=== PATIENT | female | born 1985 | race Caucasian/White ===

== ENCOUNTER 2017-06-15 13:07 | Emergency (ER) | payer SELFPAY ==
[~2017-06-15] VITALS: Ht 160 cm; Wt 59.0 kg
[2017-06-15 17:24] VITALS: BP 105/61
[2017-06-15 19:29] VITALS: BP 96/65
--- NOTE | 2017-06-15 20:17 | Emergency Room Report ---
History of Present Illness General Chief Complaint: Pain Source: Patient, EMS Present Illness HPI The patient is a 32-year-old female brought in by ambulance from the street complaining of foot pain. She states that she has been walking more than usual without shoes. Pain is an 8/10 dull ache and does not radiate. Worse with movement and touch. She denies injury to the area. She denies any other symptoms Allergies: Coded Allergies: No Known Allergies (Unverified , 06/15/17) Patient History Past Medical History: see triage record Pertinent Family History: none Reviewed Nursing Documentation: PMH: Agreed, PSxH: Agreed Nursing Documentation-PM Past Medical History: No History, Except For Hx Cancer: Yes Hx Seizures: Yes Review of Systems All Other Systems: negative except mentioned in HPI Physical Exam Vital Signs Date Time Temp Pulse Resp B/P (MAP) Pulse Ox O2 Delivery O2 Flow Rate FiO2 06/15/17 13:03 97.9 90 20 118/72 100 Room Air Sp02 EP Interpretation: reviewed, normal General Appearance: no apparent distress, alert, GCS 15, non-toxic Head: normocephalic, atraumatic Eyes: bilateral eye normal inspection, bilateral eye PERRL ENT: hearing grossly normal, normal pharynx, no angioedema, normal voice Musculoskeletal: normal inspection, normal range of motion, no calf tenderness Neurologic: alert, oriented x3, responsive, motor strength/tone normal, sensory intact, speech normal Psychiatric: judgement/insight normal, memory normal, mood/affect normal, no suicidal/homicidal ideation Skin: other - dirt to bottom of bilat feet Medical Decision Making PA Attestation Dr. Burt is my supervising physician. Patient management was discussed with my supervising physician Diagnostic Impression: Primary Impression: Foot pain, bilateral ER Course The patient is a 32-year-old female brought in by ambulance from the street complaining of foot pain Ddx considered include but not limited to sprain/strain, fracture, contusion, fasciitis, among others PE: NAD Ortho: Bilateral feet. No deformity. Full active range of motion is intact. Normal gait. No edema. Skin is warm and dry. The patient is given time to rest in the emergency department and will be discharged. ER precautions given Last Vital Signs Date Time Temp Pulse Resp B/P (MAP) Pulse Ox O2 Delivery O2 Flow Rate FiO2 06/15/17 19:29 97.8 90 15 96/65 97 Room Air Status: improved Disposition: HOME, SELF-CARE Condition: Improved Additional Instructions: I discussed my findings with the patient. All questions and concerns have been answered. Treatment and medication compliance have been addressed. I advised the patient that they need to follow up with PMD in 3-5 days. Return to ED if symptoms worsen, new symptoms arise, or if needed for any reason. Patient verbalized understanding of discharge instructions. CHRISTOPHER CARR Jun 15, 2017 20:17
[2017-06-15 20:35] VITALS: BP 96/65
== END 2017-06-15 20:35 | disposition home or self-care (01) ==
LOC: EDBD 13:07 → EMR 14:10
DX: M79.672 Pain in left foot (principal); M79.671 Pain in right foot
CPT/HCPCS: 99284